=== PATIENT | male | born 2000 ===

== ENCOUNTER 2019-07-19 17:57 | Emergency (ER) | payer OTHER ==
[~2019-07-19] VITALS: Ht 167.6 cm; Wt 79.4 kg
[2019-07-19] MEDS ORDERED: KETO10TA2 PO (22:09)
[2019-07-19] MEDS ORDERED: AMOX1TAB5 PO (22:09)
== END 2019-07-19 22:24 | disposition home or self-care (01) ==
LOC: ER 17:57
DX: J35.01 Chronic tonsillitis (principal)